=== PATIENT | male | born 1980 | race African-American/Black ===

== ENCOUNTER 2018-09-11 10:00 | Inpatient (IN) | payer OTHER ==
[~2018-09-11] VITALS: Ht 175.3 cm; Wt 63.5 kg
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
[2018-09-11 14:10] VITALS: BP 122/73
[2018-09-11 14:20] VITALS: BP 124/75
[2018-09-11 15:21] LABS: ABSOLUTE NEUTROPHILS 5.7 thou/uL (1.4-8.2); BASOPHILS 0.8 % (0.0-2.0); EOSINOPHILS 1.9 % (0.0-3.0); HEMATOCRIT 38.5 % (42.0-52.0); HEMOGLOBIN 12.5 gm/dL (14.0-18.0); LYMPHOCYTES 11.9 % (24.0-44.0); MCH 26.3 pg (26.0-34.0); MCHC 32.6 g/dL (28.0-37.0); MCV 80.9 fL (80.0-100.0); MONOCYTES 5.1 % (1.0-8.0); PLATELET COUNT 202 thou/uL (150-400); POLYS 80.3 % (36.0-66.0); RBC 4.76 mil/uL (4.50-6.00); RDW 14.5 % (10.5-14.5); WBC 7.1 thou/uL (4.0-11.0)
[2018-09-11 15:43] VITALS: BP 124/70
[2018-09-11 15:46] LABS: CALCIUM 8.9 mg/dL (8.5-10.1); CREATININE 0.9 mg/dL (0.7-1.3); POTASSIUM 3.9 mmol/L (3.5-5.1)
--- NOTE | 2018-09-11 18:30 | NUR ---
PT RECEIVED FROM THE ER AT 1520 ALERT AND IN NO ACUTE DISTRESS. PT ADMITTED AND ORIENTED TO THE UNIT. MEDS GIVEN FOR PAIN LT HAND AND LT LEG FRACTURES W/ SOME RELIEF. DR. TEMPLE NOTIFIED IN THE ER. LT HAND SPLINT IN PLACE AND LT LE IMMOBILIZER. PT USING URINAL. UA SENT. LOW GRADE TEMP. IV FLUIDS INFUSING. DRINKING WELL.
[2018-09-11 20:38] VITALS: BP 108/60
[2018-09-11 22:11] LABS: DIRECT BILIRUBIN 0.3 mg/dL (<0.1-0.3); TOTAL BILIRUBIN 1.8 mg/dL (<0.1-1.0); TOTAL PROTEIN 7.5 g/dL (6.4-8.2)
--- NOTE | 2018-09-12 02:24 | NUR ---
PT IS PLEASNT, COOPERATIVE. PT USING URINAL. IMMOBILIZER IN PLACE TO LLE. SPLINT TO LUE. TEMP OF 100.7, TYLENOL GIVEN. PT ALSO GIVEN HYDROCODONE FOR HAND AND LEG PAIN.PT DENIES NAY NAUSEA OR VOMITING. SATTING OKAY ON ROOM AIR. NO FURTHER CONCERNS.
[2018-09-12 02:34] LABS: AMP/METHAMP Negative (Negative); BARBITURATES Negative (Negative); BENZODIAZEPINES Negative (Negative); COCAINE Negative (Negative); METHADONE Negative (Negative); OPIATES POSITIVE (Negative); PCP POSITIVE (Negative)
[2018-09-12 04:17] VITALS: BP 118/88
[2018-09-12 06:24] LABS: HEMATOCRIT 36.2 % (42.0-52.0); HEMOGLOBIN 11.8 gm/dL (14.0-18.0); MCH 26.5 pg (26.0-34.0); MCHC 32.7 g/dL (28.0-37.0); MCV 80.8 fL (80.0-100.0); RBC 4.48 mil/uL (4.50-6.00); RDW 14.4 % (10.5-14.5); WBC 6.9 thou/uL (4.0-11.0)
[2018-09-12 06:36] LABS: CALCIUM 8.7 mg/dL (8.5-10.1); CREATININE 0.8 mg/dL (0.7-1.3); MAGNESIUM 1.8 mg/dL (1.8-2.4); POTASSIUM 3.7 mmol/L (3.5-5.1)
[2018-09-12 07:39] VITALS: BP 105/67
--- NOTE | 2018-09-12 08:47 | NUR ---
ASSUMED PATIENT CARE AT 0730 A.M. PATIENT LYING IN BED, SUPINE POSITION. C/O BEING HUNGRY, ASKING FOR FOOD AND DRINK. AWAITING DR'S ORDERS PRIOR TO GIVING IN CASE OF POSSIBLE SURGERY. C/O PAIN, NURSE ADMINISTERING PRN PAIN MEDICATIONS AT THIS TIME.
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
[2018-09-12 15:46] VITALS: BP 123/76
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
--- NOTE | 2018-09-12 19:31 | NUR ---
ASSUMED PATIENT CARE AT 0730, LEFT WRIST AND LEFT LEG FRACTURE. HAS LEG SPLINTED, SEEN BY ORTHOPEADIC SURGEON, WHO REPORTED TO THIS NURSE THAT PATIENT DOES NOT NEED SURGERY. STATED THAT HE CAN BE DISMISSED. NEED TO REFER TO SW.
[2018-09-12 21:45] VITALS: BP 109/57
[2018-09-13 05:10] VITALS: BP 101/70
--- NOTE | 2018-09-13 06:28 | NUR ---
SPLINT IN PLACE TO LUE. IMMOBILIZER TO LLE. AFEBRILE. C/O A 04/27 PAIN-FAIR RELIEF OBTAINED.
[2018-09-13 08:09] VITALS: BP 101/73
[2018-09-13 11:25] LABS: CALCIUM 8.9 mg/dL (8.5-10.1); CREATININE 0.9 mg/dL (0.7-1.3); MAGNESIUM 1.9 mg/dL (1.8-2.4); POTASSIUM 3.7 mmol/L (3.5-5.1)
[2018-09-13 11:34] LABS: HEMATOCRIT 38.5 % (42.0-52.0); HEMOGLOBIN 12.3 gm/dL (14.0-18.0); MCH 25.9 pg (26.0-34.0); MCV 80.9 fL (80.0-100.0); RBC 4.75 mil/uL (4.50-6.00); RDW 14.2 % (10.5-14.5)
[2018-09-13] MEDS ORDERED: NORCO 5-325 TA1 EACH PO (13:12)
--- NOTE | 2018-09-13 14:10 | NUR ---
Following for d/c planning needs. Reviewed chart and spoke with nurse, pt, OT and physician. Pt said he has been calling friends and family members. He has a friend who is currently out of town and will be back in town tomorrow. He said she will allow him to stay with her. Notified physician. Will plan on d/c to friend's house on Wednesday.
[2018-09-13 17:26] VITALS: BP 108/76
[2018-09-13 20:55] VITALS: BP 98/59
[2018-09-14 03:30] VITALS: BP 94/61
--- NOTE | 2018-09-14 04:27 | NUR ---
ASSUMED PT CARE 1899. PT ALERT AND ORIENTED. REASSRESSMENT COMPLETE. IV DRESSING C/D/I, NO SIGNS OF INFILTRATION. IMMOBILIZER TO R ARM AND R LEG. PT REPORTS NUMBNESS AND TINGLING IN R FINGERS AND R FOOT. PT ABLE TO MOVE FINGERS AND TOES. PT REPORTS MODERATE PAIN, WELL CONTROLLED WITH MEDICATION. PT DENIES N/V. PT CALL LIGHT AND PERSONAL BELONGINGS WITHIN REACH. WILL CONTNINUE POC UNTIL EOS.
[2018-09-14 07:54] VITALS: BP 95/61
[2018-09-14 08:52] LABS: URINE BILIRUBIN NEGATIVE (Negative); URINE BLOOD NEGATIVE (Negative); URINE CLARITY CLEAR; URINE COLOR YELLOW; URINE GLUCOSE-RANDOM* NEGATIVE (Negative); URINE KETONES NEGATIVE (Negative); URINE LEUKOCYTES-REFLEX NEGATIVE (Negative); URINE NITRITE-REFLEX NEGATIVE (Negative); URINE PROTEIN (DIPSTICK) NEGATIVE (Negative); URINE UROBILINOGEN 0.2 E.U./dl (0.2-1.0)
[2018-09-14 16:01] VITALS: BP 95/61
--- NOTE | 2018-09-14 16:02 | NUR ---
Following for d/c planning needs. Spoke with patient x2 today. This morning he said he may be able to stay with his sister. He said his friend would not be back into town until at least Wednesday. Reminded patient that he said he would be able to arrange a place to stay for Wednesday. Explained to pt that he cannot stay until Wednesday and that if he is not able to make arrangements with his sister to stay with her, that RN will have cab transport him to homeless [facility]. Pt is in agreement with plans. He said he will be talking with his sister within 30 minutes this afternoon.
[2018-09-14 16:35] VITALS: BP 106/63
[2018-09-14 18:04] VITALS: BP 95/61
--- NOTE | 2018-09-14 18:06 | NUR ---
SPOKE WUITH PATIENT HE STATED HIS SISTER WOULD COME AND GET HIM AT 1999. HE TOLD SLASHER TENDER SISTER WAS A NURSE AND WOULD CELL COVERER BY 2029. SLASHER TENDER STATED TO DISCHARGE AND TAKE HIM TO ER. WE CAN GIVE HIM A FOOD BOX AND SOME DRINKS. THEY WOULD GIVE A VOUCHER FOR A CAB.IF HIS SISTER DOES NOT PICK HIM UP.HE [facility].
--- NOTE | 2018-09-14 18:11 | NUR ---
DISCHARGE PAPERS GONE OVER WITH PATIENT SIGNED AND COPY IN CHART. IV ACSESS DCD.
== END 2018-09-14 19:06 | disposition home or self-care (01) | DRG 563 ==
LOC: ER 10:00 → EROBS 13:35 → 4E 13:35 → ENTRNSPT 09-14 18:31 → 4E 09-14 19:06
PROVIDERS: Nurse Practitioner Acute Care; Student in an Organized Health Care Education/Training Program; ADMIT Internal Medicine
PROC: 2W3RX1Z Immobilization of Left Lower Leg using Splint (ICD-10-PCS; principal; 2018-09-11)
DX: S62.637A Displaced fracture of distal phalanx of left little finger, initial encounter for closed fracture (principal); E87.1 Hypo-osmolality and hyponatremia; F43.10 Post-traumatic stress disorder, unspecified; F17.210 Nicotine dependence, cigarettes, uncomplicated; S82.402A Unspecified fracture of shaft of left fibula, initial encounter for closed fracture; Y00.XXXA Assault by blunt object, initial encounter; X31.XXXA Exposure to excessive natural cold, initial encounter; Y93.89 Activity, other specified; Y92.89 Other specified places as the place of occurrence of the external cause; Y99.8 Other external cause status
CPT/HCPCS: 10183; 10783

== ENCOUNTER 2019-04-09 10:16 | Emergency (ER) | payer OTHER ==
[~2019-04-09] VITALS: Ht 165.1 cm; Wt 54.4 kg
[~2019-04-09 10:16] MED LIST: NORCO 5-325 TA1 EACH PO
[2019-04-09 11:43] VITALS: BP 119/87
== END 2019-04-09 11:58 | disposition home or self-care (01) ==
LOC: ER 10:16
DX: M54.6 Pain in thoracic spine (principal); G89.29 Other chronic pain; Z59.0 Homelessness; F17.210 Nicotine dependence, cigarettes, uncomplicated

== ENCOUNTER 2019-04-26 05:36 | Emergency (ER) | payer OTHER ==
[~2019-04-26] VITALS: Ht 175.3 cm; Wt 63.5 kg
[2019-04-26 05:37] VITALS: BP 133/71
[2019-04-26] MEDS ORDERED: NOHOMEMEDICATIONS (05:41)
[2019-04-26] MEDS ORDERED: ROBAXIN 750 MG750 MG PO (06:04)
[2019-04-26] MEDS ORDERED: TYLENOL EXTRA500 MG PO (06:04)
[2019-04-26] MEDS ORDERED: KEFLEX500 M1 PO (06:20)
== END 2019-04-26 06:26 | disposition home or self-care (01) ==
LOC: ER 05:36
DX: L03.115 Cellulitis of right lower limb (principal); M54.5 Low back pain; G89.29 Other chronic pain; M25.512 Pain in left shoulder; F17.210 Nicotine dependence, cigarettes, uncomplicated

== ENCOUNTER 2019-05-02 00:53 | Emergency (ER) | payer OTHER ==
[~2019-05-02] VITALS: Ht 175.3 cm; Wt 68.0 kg
[~2019-05-02 00:53] MED LIST changes: +KEFLEX500 M1 PO; +NOHOMEMEDICATIONS; +ROBAXIN 750 MG750 MG PO; +TYLENOL EXTRA500 MG PO
[2019-05-02 01:41] VITALS: BP 117/68
== END 2019-05-02 01:47 | disposition home or self-care (01) ==
LOC: ER 00:53
DX: M54.5 Low back pain (principal); M79.645 Pain in left finger(s); F17.210 Nicotine dependence, cigarettes, uncomplicated

== ENCOUNTER 2020-09-21 01:33 | Emergency (ER) | payer OTHER ==
[~2020-09-21] VITALS: Ht 177.8 cm; Wt 79.4 kg
[2020-09-21 01:42] VITALS: BP 130/83
== END 2020-09-21 02:39 | disposition home or self-care (01) ==
LOC: ER 01:33
DX: K30 Functional dyspepsia (principal); F17.210 Nicotine dependence, cigarettes, uncomplicated; Z79.899 Other long term (current) drug therapy